=== PATIENT | female | born 1990 | race Caucasian/White ===

== ENCOUNTER 2022-02-21 09:34 | Day surgery (SDC) | payer OTHER ==
[2022-02-21] MEDS ORDERED: Promethazine HCl 25 MG/ML VIAL IM PRN (10:28)
[2022-02-21] MEDS ORDERED: Ondansetron PF 4 MG/2 ML Vial IVP PRN (10:28)
[2022-02-21 12:28] LABS: SARS-CoV-2 NAA Rapid Test Not Detected (NotDetected)
[2022-02-21 14:46] LABS: Bilirubin Neg (Negative); Blood, Urine 25 (Negative); CAUTI Indications for Culture Dysuria,urgency,freq; Clarity Clear (Clear); Glucose, Urine (Dipstick) Normal (Negative); Ketone, Urine Negative (Negative); Leukocyte Negative (Negative); Nitrite Negative (Negative); Protein, Urine (Dipstick) Negative (Neg-Trace); Specific Gravity, Urine 1.015 (1.005-1.030)
[2022-02-21 14:48] LABS: Urine Culture Reflex No No
[2022-02-21 15:10] LABS: Bacteria/HPF 2+ HPF (None Seen); WBC/HPF 0-3 HPF (0-3)
== END 2022-02-21 13:45 | disposition home or self-care (01) ==
LOC: CSHLD/OP 09:34
PROVIDERS: ATTEND Family Medicine
DX: O21.2 Late vomiting of pregnancy (principal); O23.43 Unspecified infection of urinary tract in pregnancy, third trimester; O99.213 Obesity complicating pregnancy, third trimester; E66.9 Obesity, unspecified; Z86.16 Personal history of COVID-19; Z79.899 Other long term (current) drug therapy; Z98.891 History of uterine scar from previous surgery; Z3A.28 28 weeks gestation of pregnancy; Z20.822 Contact with and (suspected) exposure to COVID-19
CPT/HCPCS: 81001; 87077; 87086; 99283

== ENCOUNTER 2022-07-30 12:00 | Emergency (ER) | payer OTHER ==
[2022-07-30 13:06] LABS: #Eosinphils 0.7 10x3/uL (0.0-0.5); #Monocytes 0.4 10x3/uL (0.0-1.1); #Neutrophils 2.9 10x3/uL (1.5-8.4); %Basophils 0.5 % (0.0-2.0); %Eosinophils 11.5 % (0.0-6.0); %Lymphocytes 29.4 % (18.0-47.0); %Monocytes 6.7 % (0.0-10.0); %Neutrophils 51.5 % (40.0-75.0); Mean Corpuscular HGB CONC 31.7 g/dL (32.0-36.0); Mean Corpuscular Hemoglobin 25.5 pg (27.0-33.0); Mean Corpuscular Volume 80.3 fl (81.6-98.3); Platelet Count 229 10x3/uL (150-450); RBC Distribution Width 15.4 % (11.5-14.5); Red Blood Cell (RBC) Count 4.32 10x6/uL (3.90-5.03); White Blood Cell (WBC) Count 5.6 10x3/uL (3.5-10.5)
[2022-07-30 13:20] LABS: BHCG - Serum Negative (NEGATIVE); Pregs Control Background? CLEAR/WHITE (CLR/WHITE); Pregs Control Bar Appear? YES (CONTROL BAR)
[2022-07-30 13:28] LABS: ALT (SGPT) 49 U/L (8-55); AST (SGOT) 32 U/L (5-34); Alkaline Phosphatase 84 U/L (40-110); Anion Gap 13 mmol/L (10-20); BUN (Urea Nitrogen) 6 mg/dL (7.0-18.7); Bilirubin, Total 0.2 mg/dL (0.2-1.2); Calc. Creatinine Clearance 0 mL/min (70-130); Calcium 9.3 mg/dL (7.8-10.44); Carbon Dioxide 24 mmol/L (22-29); Chloride 108 mmol/L (98-107); Estimated GFR 113; Globulin 3.1 g/dL (2.4-3.5); Glucose 98 mg/dL (70-105); Potassium 3.5 mmol/L (3.5-5.1); Protein, Total 7.1 g/dL (6.0-8.3); Sodium 141 mmol/L (136-145)
== END 2022-07-30 14:04 | disposition home or self-care (01) ==
LOC: CSHERS 12:00
DX: R42 Dizziness and giddiness (principal)
CPT/HCPCS: 36415; 36416; 80053; 84703; 85025; 93005

== ENCOUNTER 2023-03-03 11:04 | Emergency (ER) | payer OTHER | END 2023-03-03 17:31 | disposition home or self-care (01) | LOC: CSHERS 11:04 | DX: S50.861A Insect bite (nonvenomous) of right forearm, initial encounter (principal); L03.113 Cellulitis of right upper limb; W57.XXXA Bitten or stung by nonvenomous insect and other nonvenomous arthropods, initial encounter | CPT/HCPCS: 99283 ==

== ENCOUNTER 2023-04-23 22:12 | Emergency (ER) | payer OTHER | END 2023-04-23 22:40 | disposition home or self-care (01) | LOC: CSHERS 22:12 | DX: J18.9 Pneumonia, unspecified organism (principal); Z55.6 Problems related to health literacy | CPT/HCPCS: 71046 ==

== ENCOUNTER 2024-10-07 17:15 | Emergency (ER) | payer OTHER, SELFPAY ==
[2024-10-07] MEDS ORDERED: Ketorolac Tromethamine 30 MG (1 mL) VIAL ONE (18:40)
[2024-10-07 19:31] LABS: #Basophils 0.04 10x3/uL (0.0-0.2); #Eosinophils 0.26 10x3/uL (0.0-0.5); #Monocytes 0.55 10x3/uL (0.0-1.1); #Neutrophils 4.36 10x3/uL (1.5-8.4); %Basophils 0.6 % (0.0-2.0); %Eosinophils 3.9 % (0.0-6.0); %Lymphocytes 22.6 % (18.0-47.0); %Monocytes 8.2 % (0.0-10.0); %Neutrophils 64.6 % (40.0-75.0); Hematocrit 37.2 % (34.9-44.5); Hemoglobin 11.9 g/dL (12.0-15.5); Mean Corpuscular Hemoglobin 23.3 pg (27.0-33.0); Mean Corpuscular Volume 72.8 fL (81.6-98.3); Platelet Count 291 10x3/uL (150-450); Red Blood Cell (RBC) Count 5.11 10x6/uL (3.90-5.03); White Blood Cell (WBC) Count 6.74 10x3/uL (3.5-10.5)
[2024-10-07 19:40] LABS: ALT (SGPT) 22 U/L (Less than 34); AST (SGOT) 16 U/L (11-34); Albumin 4.0 g/dL (3.1-4.5); Alkaline Phosphatase 76 U/L (40-110); Anion Gap 14 mmol/L (10-20); BUN (Urea Nitrogen) 13 mg/dL (7.0-18.7); Bilirubin, Total 0.2 mg/dL (0.3-1.2); Calc. Creatinine Clearance 0 mL/min (70-130); Calcium 8.9 mg/dL (7.8-10.44); Carbon Dioxide 21 mmol/L (22-29); Chloride 107 mmol/L (98-107); Globulin 3.9 g/dL (2.4-3.5); Glucose 118 mg/dL (70-105); Potassium 3.6 mmol/L (3.5-5.1); Sodium 138 mmol/L (136-145)
[2024-10-07 20:08] LABS: Glucose, Urine (Dipstick) Normal (Negative); Leukocyte Negative (Negative); Protein, Urine (Dipstick) 15 mg/dl (Neg-Trace); Specific Gravity, Urine 1.020 (1.005-1.030)
[2024-10-07 20:16] LABS: Pregnancy Test - Urine (BHCG) Negative (Negative); Pregu Control Background? CLEAR/WHITE (CLR/WHITE); Pregu Control Bar Appear? YES (CONTROL BAR)
[2024-10-07 20:57] LABS: Bacteria/HPF 1+ HPF (None Seen); CAUTI Indications for Culture Dysuria,urgency,freq; Mucous/LPF 1+ LPF (<2+); WBC/HPF 0-3 HPF (0-3)
[2024-10-07 20:58] LABS: Urine Culture Reflex No No
== END 2024-10-07 20:23 | disposition home or self-care (01) ==
LOC: CSHERS 17:15
DX: K76.0 Fatty (change of) liver, not elsewhere classified (principal); F17.290 Nicotine dependence, other tobacco product, uncomplicated; E66.01 Morbid (severe) obesity due to excess calories
CPT/HCPCS: 74176; 80053; 81001; 81025; 85025; 96374; J1885